=== PATIENT | male | born 1955 | race African-American/Black ===

== ENCOUNTER 2025-09-09 10:24 | Outpatient (CLI) | payer MEDICARE | END 2025-09-09 10:25 | disposition home or self-care (01) | LOC: BURRAD 10:24 | PROVIDERS: ATTEND Nurse Practitioner Family | DX: M25.562 Pain in left knee (principal); M25.561 Pain in right knee; M17.12 Unilateral primary osteoarthritis, left knee; M67.863 Other specified disorders of tendon, right knee ==